=== PATIENT | female | born 1970 | race African-American/Black ===

== ENCOUNTER 2017-03-21 09:28 | Inpatient (IN) | payer MEDICAID ==
[~2017-03-21] VITALS: Ht 160 cm; Wt 100.0 kg
[2017-03-21] VITALS (11 sets, daily range): BP systolic 154–187; BP diastolic 78–97; PULSE 78–87; RESP 16–20; TEMP 97.6–98.7; O2SAT 99–100
[~2017-03-21 09:28] MED LIST: PENI250T59 PO; ULTR50TA PO
[2017-03-21] MEDS ORDERED: SODIUM CHLORIDE 0.9% FLUSH 10 ML FLUSH IVF PRN (10:15)
[2017-03-21] MEDS ORDERED: ASPIRIN 81 MG CHEW TAB PO ONE (10:15)
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
[2017-03-21 10:22] LABS: AUTOMATED NEUTROPHIL # 1.3 TH/MM3 (1.8-7.7); BASOPHIL # 0.1 TH/MM3 (0-0.2); BASOPHIL % 1.7 % (0.0-2.0); EOSINOPHIL # 0.1 TH/MM3 (0-0.4); EOSINOPHIL % 1.7 % (0.0-4.0); LYMPH % 51.5 % (9.0-44.0); MEAN CELL VOLUME 56.4 FL (80.0-100.0); MEAN CORPUSCULAR HEMOGLOBIN 15.6 PG (27.0-34.0); MONO % 11.9 % (0.0-8.0); NEUT % 33.2 % (16.0-70.0); PLATELET COUNT 424 TH/MM3 (150-450); RED BLOOD COUNT 3.45 MIL/MM3 (4.00-5.30); RED CELL DISTRIBUTION WIDTH 22.3 % (11.6-17.2); WHITE BLOOD COUNT 3.8 TH/MM3 (4.0-11.0)
[2017-03-21 10:25] LABS: HEMO FLAGS DIFF FINAL; MEAN CORPUSCULAR HGB CONC 27.6 % (32.0-36.0)
[2017-03-21 10:28] LABS: HEMATOCRIT 19.5 % (35.0-46.0)
--- NOTE | 2017-03-21 10:35 | RADRPT ---
EXAM DATE/TIME: 03/21/2017 10:16 [facility] COMPARISON: No previous studies available for comparison. INDICATIONS : Shortness of breath. MEDICAL HISTORY : None. SURGICAL HISTORY : None. ENCOUNTER: Initial ACUITY: 1 day PAIN SCORE: 0/10 LOCATION: Bilateral chest FINDINGS: A single view of the chest demonstrates the lungs to be symmetrically aerated without evidence of mas s, infiltrate or effusion. The cardiomediastinal contours are unremarkable. Osseous structures are intact. CONCLUSION: No acute disease. Be Denny MD on March 21, 2017 at 10:32 Board Certified Radiologist. This report was verified electronically.
[2017-03-21 10:45] LABS: ALT (GPT) 32 U/L (10-53); ANION GAP 8 MEQ/L (5-15); AST (GOT) 54 U/L (15-37); BLOOD UREA NITROGEN 10 MG/DL (7-18); CHLORIDE 110 MEQ/L (98-107); GLOMERULAR FILTRATION RATE 174 ML/MIN (>89); POTASSIUM 3.8 MEQ/L (3.5-5.1); SODIUM (NA) 142 MEQ/L (136-145)
[2017-03-21 10:50] LABS: ALKALINE PHOSPHATASE 53 U/L (45-117); TOTAL BILIRUBIN ADULT 0.3 MG/DL (0.2-1.0)
[2017-03-21 10:59] LABS: APTT (PATIENT) 24.9 SEC (24.3-30.1); PROTHROMBIN TIME - PATIENT 10.4 SEC (9.8-11.6)
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
[2017-03-21] MEDS ORDERED: SODIUM CHLOR 0.9% 250 ML INJ 250 ML IV ONE (11:45)
[2017-03-21] MEDS ORDERED: SENNOSIDES 8.6 MG TAB PO PRN (12:15)
[2017-03-21] MEDS ORDERED: FLUMAZENIL 0.5 MG/5 ML VIAL IV PUSH PRN (12:15)
[2017-03-21] MEDS ORDERED: SODIUM CHLORIDE 0.9% FLUSH 10 ML FLUSH IV FLUSH PRN (12:15)
[2017-03-21] MEDS ORDERED: NALOXONE HCL 0.4 MG/ML AMP IV PUSH PRN (12:15)
[2017-03-21] MEDS ORDERED: LORazepam 2 MG/ML VIAL IV PUSH PRN ×4 (12:15)
[2017-03-21] MEDS ORDERED: MAGNESIUM HYDROXIDE SUSP 30 ML CUP PO PRN (12:15)
[2017-03-21] MEDS ORDERED: BISACODYL 10 MG SUPP RECTAL PRN (12:15)
[2017-03-21] MEDS ORDERED: LORazepam 1 MG TAB PO PRN (12:15)
[2017-03-21] MEDS ORDERED: LACTULOSE SYRUP 20 GM/30 ML CUP PO PRN (12:15)
[2017-03-21] MEDS ORDERED: LORazepam 2 MG TAB PO PRN (12:15)
[2017-03-21] MEDS ORDERED: ONDANSETRON HCL 4 MG/2 ML VIAL IVP PRN (12:15)
--- NOTE | 2017-03-21 12:28 | HHI.HP ---
[facility] Service [facility] Primary Care Physician Sonny Roach MD Admission Diagnosis symptomatic anemia Diagnoses: Travel History International Travel<30 Days: No Contact w/Intl Traveler <30 Da: No Traveled to Known Affected Are: No History of Present Illness 46 year old female with a PMH of anemia requiring blood transfusions in the past presents with SOB and a "weird" feeling since 6am. The patient complains of feeling dizzy and lightheaded. She denies chest pain. She has received 3 blood transfusions in the past for severe anemia. She was seen by gastroenterology approximately 1 year ago where she had a colonoscopy done. She reports the colonoscopy was wnl without signs of bleeding. Patient has very heavy periods, lasting 8 days. She usually goes through 10 pads in a 24 hour period. She does not have a doctor that she see regularly, however she just got a new job with health insurance so she will be able to establish with a PCP. She denies hematemesis, melena and dark stools. H&H 5.4/19.5. Troponin mildly elevated to 0.06. EKG shows NSR without ST elevations or depressions. Review of Systems Denies fever or chills Denies blurry vision, otorrhea, rhinorrhea Denies sore throat and cough No chest pain, palpitations, positive shortness of breath No abdominal pain Denies constipation/diarrhea/nausea/vomiting Denies muscle pain/weakness No rashes Past Family Social History Past Medical History Anemia Past Surgical History c/s x 2 Reported Medications None Allergies: Coded Allergies: iodine (Unverified Allergy, Severe, HIVES, 03/21/17) potassium iodide (Unverified Allergy, Severe, HIVES, 03/21/17) povidone-iodine (Unverified Allergy, Severe, HIVES, 03/21/17) sodium iodide (Unverified Allergy, Severe, HIVES, 03/21/17) sodium iodide (Unverified Allergy, Severe, HIVES, 03/21/17) Family History No family history of CAD, DM Social History Never smoker. Drinks 2 mixed drinks daily. Denies illicit drugs. Physical Exam Vital Signs Vital Signs Date Time Temp Pulse Resp B/P (MAP) Pulse Ox O2 Delivery O2 Flow Rate FiO2 03/21/17 10:40 20 100 Room Air 03/21/17 09:41 98.4 87 18 187/86 (119) 100 Room Air 03/21/17 09:41 18 99 Room Air 03/21/17 09:39 98.4 82 18 187/86 (119) 99 Physical Exam GENERAL: AA female sitting up in bed SKIN: No rashes, ecchymoses or lesions. Cool and dry. HEAD: Atraumatic. Normocephalic. No temporal or scalp tenderness. EYES: Pupils equal round and reactive. Extraocular motions intact. No scleral icterus. No injection or drainage. Conjunctival pallor. ENT: Nose without bleeding, purulent drainage or septal hematoma. Throat without erythema, tonsillar hypertrophy or exudate. Uvula midline. Airway patent. NECK: Trachea midline. No JVD or lymphadenopathy. Supple, nontender, no meningeal signs. CARDIOVASCULAR: Regular rate and rhythm without murmurs, gallops, or rubs. RESPIRATORY: Clear to auscultation. Breath sounds equal bilaterally. No wheezes , rales, or rhonchi. GASTROINTESTINAL: Abdomen soft, non-tender, nondistended. No hepato-splenomegaly , or palpable masses. No guarding. MUSCULOSKELETAL: Extremities without clubbing, cyanosis, or edema. No joint tenderness, effusion, or edema noted. No calf tenderness. NEUROLOGICAL: Awake and alert. Cranial nerves II through XII intact. Motor and sensory grossly within normal limits. Normal speech. Laboratory Laboratory Tests Test 03/21/17 10:00 03/21/17 10:40 White Blood Count 3.8 Red Blood Count 3.45 Hemoglobin 5.4 Hematocrit 19.5 Mean Corpuscular Volume 56.4 Mean Corpuscular Hemoglobin 15.6 Mean Corpuscular Hemoglobin Concent 27.6 Red Cell Distribution Width 22.3 Platelet Count 424 Mean Platelet Volume 8.2 Neutrophils (%) (Auto) 33.2 Lymphocytes (%) (Auto) 51.5 Monocytes (%) (Auto) 11.9 Eosinophils (%) (Auto) 1.7 Basophils (%) (Auto) 1.7 Neutrophils # (Auto) 1.3 Lymphocytes # (Auto) 2.0 Monocytes # (Auto) 0.5 Eosinophils # (Auto) 0.1 Basophils # (Auto) 0.1 CBC Comment DIFF FINAL Differential Comment Blood Urea Nitrogen 10 Creatinine 0.47 Random Glucose 110 Total Protein 7.6 Albumin 3.5 Calcium Level 8.3 Alkaline Phosphatase 53 Aspartate Amino Transf (AST/SGOT) 54 Alanine Aminotransferase (ALT/SGPT) 32 Total Bilirubin 0.3 Sodium Level 142 Potassium Level 3.8 Chloride Level 110 Carbon Dioxide Level 24.0 Anion Gap 8 Estimat Glomerular Filtration Rate 174 Troponin I 0.06 B-Type Natriuretic Peptide 22 Prothrombin Time 10.4 Prothromb Time International Ratio 1.0 Activated Partial Thromboplast Time 24.9 Result Diagram: 03/21/17 1000 03/21/17 1000 Caprini VTE Risk Assessment Caprini VTE Risk Assessment: No/Low Risk (score <= 1) Caprini Risk Assessment Model Point Value = 1 Point Value = 2 Point Value = 3 Point Value = 5 Age 41-60 Minor surgery BMI > 25 kg/m2 Swollen legs Varicose veins or History of unexplained or recurrent spontaneous Oral contraceptives or hormone replacement Sepsis (< 1 month) Serious lung disease, including pneumonia (< 1 month) Abnormal pulmonary function Acute myocardial infarction Congestive heart failure (< 1 month) History of inflammatory bowel disease Medical patient at bed rest Age 61-74 Arthroscopic surgery Major open surgery (> 45 min) Laparoscopic surgery (> 45 min) Malignancy Confined to bed (> 72 hours) Immobilizing plaster cast Central venous access Age >= 75 History of VTE Family history of VTE Factor V Leiden Prothrombin [id number] Lupus anticoagulant Anticardiolipin antibodies Elevated serum homocysteine Heparin-induced thrombocytopenia Other congenital or acquired thrombophilia Stroke (< 1 month) Elective arthroplasty Hip, pelvis, or leg fracture Acute spinal cord injury (< 1 month) Prophylaxis Regimen Total Risk Factor Score Risk Level Prophylaxis Regimen 0-1 Low Early ambulation 2 Moderate Order ONE of the following: *Sequential Compression Device (SCD) *Heparin 5000 units SQ BID 3-4 Higher Order ONE of the following medications: *Heparin 5000 units SQ TID *Enoxaparin/Lovenox 40 mg SQ daily (WT < 150 kg, CrCl > 30 mL/min) *Enoxaparin/Lovenox 30 mg SQ daily (WT < 150 kg, CrCl > 10-29 mL/min) *Enoxaparin/Lovenox 30 mg SQ BID (WT < 150 kg, CrCl > 30 mL/min) AND/OR *Sequential Compression Device (SCD) 5 or more Highest Order ONE of the following medications: *Heparin 5000 units SQ TID (Preferred with Epidurals) *Enoxaparin/Lovenox 40 mg SQ daily (WT < 150 kg, CrCl > 30 mL/min) *Enoxaparin/Lovenox 30 mg SQ daily (WT < 150 kg, CrCl > 10-29 mL/min) *Enoxaparin/Lovenox 30 mg SQ BID (WT < 150 kg, CrCl > 30 mL/min) AND *Sequential Compression Device (SCD) Assessment and Plan Assessment and Plan 46 year old female presents with severe symptomatic anemia. 1. Severe anemia H/H 5.4/19.5, MCV 56.4 Transfuse 2 units PRBCs Hemoccult negative in ED, small amount of stool sampled Repeat Hemoccult when patient has BM, if positive will consult GI S/p colonoscopy for anemia one year ago - wnl without bleeding Suspect 2/2 heavy menses Start PO Iron supplementation Patient will need outpatient f/u 2. Elevated troponin Troponin 0.[address] elevations/depressions No chest pain Likely 2/2 severe anemia Trend troponin/EKG to r/o cardiac origin FEN Heart healthy diet Electrolytes: monitor and replete prn SCDs 3. EtOH abuse Daily intake CIWA protocol Thiamine/Folate/Multivitamins Case discussed with ER physician at length Physician Certification 2 Midnight Certification Type: Admission for Inpatient Services Order for Inpatient Services The services are ordered in accordance with Medicare regulations or non- Medicare payer requirements, as applicable. In the case of services not specified as inpatient-only, they are appropriately provided as inpatient services in accordance with the 2-midnight benchmark. Estimated LOS (days): 2 2 days is the estimated time the patient will need to remain in the hospital, assuming treatment plan goals are met and no additional complications. Post-Hospital Plan: Home Mariajose Begum MD Mar 21, 2017 12:28
[2017-03-21 13:05] LABS: TRANSFERRIN IRON PROFILE 445 MG/DL (200-360)
[2017-03-21 13:08] LABS: FERRITIN 5 NG/ML (8-252)
[2017-03-21] MEDS: ACETAMINOPHEN 325 MG TAB PO PRN (17:58)
[2017-03-21] MEDS: DOCUSATE SODIUM 50 MG/SENNA 8.6 MG TAB PO SCH (20:25)
[2017-03-21] MEDS: FERROUS SULFATE 325 MG (65 MG ELEMENTAL IRON) TAB PO SCH (20:26)
[2017-03-21] MEDS: SODIUM CHLORIDE 0.9% FLUSH 10 ML FLUSH IV FLUSH SCH (20:27)
--- NOTE | 2017-03-21 22:04 | EKG ---
Date Performed: 03/21/2017 Time Performed: 10:31:38 PTAGE: 46 years EKG: Sinus rhythm NORMAL ECG NO PREVIOUS TRACING DOCTOR: Thomas Lujan Interpretating Date/Time 03/21/2017 22:03:41
[2017-03-22] VITALS (8 sets, daily range): BP systolic 136–169; BP diastolic 79–98; PULSE 73–91; RESP 15–18; TEMP 97.7–98.9; O2SAT 98–100
[2017-03-22 02:05] LABS: AUTOMATED NEUTROPHIL # 2.2 TH/MM3 (1.8-7.7); BASOPHIL # 0.1 TH/MM3 (0-0.2); BASOPHIL % 1.2 % (0.0-2.0); EOSINOPHIL # 0.1 TH/MM3 (0-0.4); EOSINOPHIL % 2.7 % (0.0-4.0); HEMATOCRIT 22.9 % (35.0-46.0); LYMPH % 41.7 % (9.0-44.0); LYMPHOCYTE # 2.2 TH/MM3 (1.0-4.8); NEUT % 41.4 % (16.0-70.0); PLATELET COUNT 352 TH/MM3 (150-450); RED BLOOD COUNT 4.01 MIL/MM3 (4.00-5.30); RED CELL DISTRIBUTION WIDTH 21.2 % (11.6-17.2); WHITE BLOOD COUNT 5.3 TH/MM3 (4.0-11.0)
[2017-03-22 02:26] LABS: HEMO FLAGS DIFF FINAL; MEAN CORPUSCULAR HGB CONC 29.8 % (32.0-36.0)
[2017-03-22 02:28] LABS: BICARBONATE 26.6 MEQ/L (21.0-32.0); POTASSIUM 3.5 MEQ/L (3.5-5.1)
[2017-03-22] MEDS ORDERED: SODIUM CHLOR 0.9% 250 ML INJ 250 ML IV ONE (02:45)
[2017-03-22] MEDS: DOCUSATE SODIUM 50 MG/SENNA 8.6 MG TAB PO SCH ×2 (08:20→20:49)
[2017-03-22] MEDS: MULTIVITAMINS/MINERALS THERAPEUTIC TAB PO SCH (08:20)
[2017-03-22] MEDS: FERROUS SULFATE 325 MG (65 MG ELEMENTAL IRON) TAB PO SCH ×2 (08:20→20:49)
[2017-03-22] MEDS: FOLIC ACID 1 MG TAB PO SCH (08:20)
[2017-03-22] MEDS: THIAMINE HCL 100 MG TAB PO SCH (08:20)
[2017-03-22] MEDS: SODIUM CHLORIDE 0.9% FLUSH 10 ML FLUSH IV FLUSH SCH ×2 (08:21→20:51)
--- NOTE | 2017-03-22 12:06 | HHI.PR ---
Subjective Remarks in no acute distress. overall feeling better today. no chest pain, sob or dizziness. blood transfusion in process. Objective Vitals Vital Signs Date Time Temp Pulse Resp B/P (MAP) Pulse Ox O2 Delivery O2 Flow Rate FiO2 03/22/17 08:00 98.0 73 17 168/97 (120) 98 03/22/17 04:57 98.3 78 17 99 03/22/17 04:57 98.3 78 17 163/98 (119) 99 03/22/17 04:42 98.8 77 16 165/98 (120) 03/22/17 04:42 98.8 77 16 165/98 100 03/22/17 00:00 98.1 80 15 149/89 (109) 100 03/21/17 20:40 98.5 87 16 161/83 100 03/21/17 19:00 98.1 81 17 158/97 (117) 99 03/21/17 18:00 98.4 80 18 171/97 100 03/21/17 17:45 98.6 78 18 164/92 100 03/21/17 16:27 97.6 80 18 166/97 100 03/21/17 14:45 03/21/17 13:22 98.7 85 20 154/87 100 03/21/17 13:08 85 18 163/78 (106) 100 Room Air 03/21/17 13:06 98.6 86 18 163/78 100 I/O 03/21/17 03/21/17 03/21/17 03/22/17 03/22/17 03/22/17 07:00 15:00 23:00 07:00 15:00 23:00 Intake Total 50 ml 2007 ml Balance 50 ml 2007 ml Intake Oral 480 ml Packed Cells 1200 ml Blood Product IV Normal Saline Flush 50 ml 327 ml # Voids 3 # Bowel Movements 0 Result Diagram: 03/22/17 0156 03/22/17 0156 Imaging Last Impressions Chest X-Ray 03/21/17 1003 Signed Impressions: Service Date/Time: Tuesday, March 21, 2017 10:16 - CONCLUSION: No acute disease. Be Denny MD Lower Extremity Ultrasound 03/21/17 0000 Signed Impressions: Service Date/Time: Tuesday, March 21, 2017 11:13 - CONCLUSION: No DVT left leg. Be Denny MD Objective Remarks GENERAL: This is a well-nourished, well-developed patient, in no apparent distress. CARDIOVASCULAR: Regular rate and regular rhythm without murmurs, gallops, or rubs. RESPIRATORY: Clear to auscultation. Breath sounds equal bilaterally. No wheezes , rales, or rhonchi. GASTROINTESTINAL: Abdomen soft, non-tender, nondistended. Normal, active bowel sounds MUSCULOSKELETAL: Extremities without clubbing, cyanosis, or edema. NEURO: Alert & Oriented x4 to person, place, time, situation. Moves all ext x4 Medications and IVs Current Medications Aspirin (Aspirin Chew) 162 mg ONCE ONCE PO Last administered on 03/21/17 10: 40; Start 03/21/17 at 10:15; Stop 03/21/17 at 10:16; Status DC Sodium Chloride (NS Flush) 2 ml UNSCH PRN IVF FLUSH AFTER USING IV ACCESS; Start 03/21/17 at 10:15; Stop 03/21/17 at 12:32; Status DC Sodium Chloride 250 ml @ 15 mls/hr ONCE ONCE IV Last administered on 13:08; Start 03/21/17 at 11:45; Stop 03/22/17 at 04:24; Status DC Sodium Chloride (NS Flush) 2 ml UNSCH PRN IV FLUSH FLUSH AFTER USING IV ACCESS ; Start 03/21/17 at 12:15 Sodium Chloride (NS Flush) 2 ml BID IV FLUSH Last administered on 03/22/17 08: 21; Start 03/21/17 at 21:00 Acetaminophen (Tylenol) 650 mg Q4H PRN PO TEMP > 100.4 Last administered on 17:58; Start 03/21/17 at 12:15 Ondansetron HCl (Zofran Inj) 4 mg Q6H PRN IVP NAUSEA OR VOMITING; Start at 12:15 Naloxone HCl (Narcan Inj) 0.4 mg UNSCH PRN IV PUSH SEE LABEL COMMENTS; Start 03/21/17 at 12:15 Senna/Docusate Sodium (Lili-Colace) 1 tab BID PO Last administered on 08:20; Start 03/21/17 at 21:00 Magnesium Hydroxide (Milk Of Magnesia Liq) 30 ml Q12H PRN PO Mild constipation ; Start 03/21/17 at 12:15 Sennosides (Senokot) 17.2 mg Q12H PRN PO Moderate constipation; Start 03/21/17 at 12:15 Bisacodyl (Dulcolax Supp) 10 mg DAILY PRN RECTAL SEVERE CONSITIPATION; Start 03/21/17 at 12:15 Lactulose (Lactulose Liq) 30 ml DAILY PRN PO SEVERE CONSITIPATION; Start at 12:15 Flumazenil (Romazicon Inj) 0.2 mg Q1M PRN IV PUSH SEE LABEL COMMENTS; Start at 12:15 Lorazepam (Ativan) 1 mg Q4H PRN PO CIWA 8 - 10; Start 03/21/17 at 12:15 Lorazepam (Ativan Inj) 1 mg Q4H PRN IV PUSH CIWA 8 - 10; Start 03/21/17 at 12: 15 Lorazepam (Ativan) 2 mg Q2H PRN PO CIWA 11-14; Start 03/21/17 at 12:15 Lorazepam (Ativan Inj) 2 mg Q2H PRN IV PUSH CIWA 11-14; Start 03/21/17 at 12:15 Lorazepam (Ativan Inj) 2 mg Q1H PRN IV PUSH CIWA 15-20; Start 03/21/17 at 12:15 Lorazepam (Ativan Inj) 2 mg Q15M PRN IV PUSH CIWA > 20; Start 03/21/17 at 12:15 Ferrous Sulfate (Ferrous Sulfate) 325 mg BID PO Last administered on 03/22/17 08:20; Start 03/21/17 at 21:00 Folic Acid (Folate) 1 mg DAILY PO Last administered on 03/22/17 08:20; Start 03/22/17 at 09:00; Stop 03/27/17 at 08:59 Thiamine HCl (Vitamin B1) 100 mg DAILY PO Last administered on 03/22/17 08:20 ; Start 03/22/17 at 09:00 Multivitamins/ Minerals Therapeutic (Theragran M Tab) 1 tab DAILY PO Last administered on 03/22/17 08:20; Start 03/22/17 at 09:00; Stop 03/27/17 at 08:59 Sodium Chloride 250 ml @ 15 mls/hr ONCE ONCE IV ; Start 03/22/17 at 02:45; Stop 03/22/17 at 19:24 A/P Assessment and Plan A/P 1. Severe anemia- likely due to abnormal uterine bleeding. blood transfusion in process- Hemoccult negative in ED. Repeat Hemoccult when patient has BM, if positive will consult GI S/p colonoscopy for anemia one year ago - wnl without bleeding Suspect 2/2 heavy menses Started PO Iron supplementation Patient will need outpatient f/u 2. minimally Elevated troponin Trend stable with no chest pain. EKG NSR without ST elevations/depressions Likely 2/2 severe anemia 3. EtOH abuse Daily intake CIAL protocol Thiamine/Folate/Multivitamins Discharge Planning dc home tomorrow if stable. Sheryl Vasquez MD Mar 22, 2017 12:06
[2017-03-22] MEDS: ACETAMINOPHEN 325 MG TAB PO PRN (12:51)
[2017-03-22 17:44] LABS: HEMATOCRIT 27.5 % (35.0-46.0)
--- NOTE | 2017-03-22 19:51 | EKG ---
Date Performed: 03/21/2017 Time Performed: 21:52:27 PTAGE: 46 years EKG: Sinus rhythm Since previous tracing, no significant change noted NORMAL ECG PREVIOUS TRACING : 03/21/2017 10.31 DOCTOR: Clovis Zavala Interpretating Date/Time 03/22/2017 19:49:55
[2017-03-23] VITALS (7 sets, daily range): BP systolic 133–192; BP diastolic 80–95; PULSE 72–81; RESP 16–18; TEMP 97–98.7; O2SAT 98–100
[2017-03-23] MEDS: SODIUM CHLORIDE 0.9% FLUSH 10 ML FLUSH IV FLUSH SCH (09:00)
[2017-03-23] MEDS: FERROUS SULFATE 325 MG (65 MG ELEMENTAL IRON) TAB PO SCH (10:42)
[2017-03-23] MEDS: MULTIVITAMINS/MINERALS THERAPEUTIC TAB PO SCH (10:42)
[2017-03-23] MEDS: DOCUSATE SODIUM 50 MG/SENNA 8.6 MG TAB PO SCH (10:42)
[2017-03-23] MEDS: THIAMINE HCL 100 MG TAB PO SCH (10:42)
[2017-03-23] MEDS: FOLIC ACID 1 MG TAB PO SCH (10:42)
[2017-03-23] MEDS ORDERED: FERR325T20 PO (12:27)
--- NOTE | 2017-03-23 12:27 | HHI.PR ---
Subjective Remarks in no acute distress. no chest pain, sob or dizziness. BP and H/H trend noted. d/w the RN and no acute issues over night. Objective Vitals Vital Signs Date Time Temp Pulse Resp B/P (MAP) Pulse Ox O2 Delivery O2 Flow Rate FiO2 03/23/17 07:24 97.8 72 18 180/83 (115) 99 03/23/17 04:30 98.2 73 16 151/80 (103) 100 03/23/17 00:20 98.2 76 16 166/92 (116) 100 03/22/17 20:40 97.7 82 16 169/97 (121) 100 03/22/17 20:26 80 03/22/17 16:00 98.9 91 18 136/82 (100) 100 03/22/17 14:01 16 I/O 03/22/17 03/22/17 03/22/17 03/23/17 03/23/17 03/23/17 07:00 15:00 23:00 07:00 15:00 23:00 Intake Total 1240 ml 480 ml 360 ml Balance 1240 ml 480 ml 360 ml Intake Oral 840 ml 480 ml 360 ml Packed Cells 400 ml # Voids 4 2 2 # Bowel Movements 1 0 0 Result Diagram: 03/22/17 1653 03/22/17 0156 Imaging Last Impressions Chest X-Ray 03/21/17 1003 Signed Impressions: Service Date/Time: Tuesday, March 21, 2017 10:16 - CONCLUSION: No acute disease. Be Denny MD Lower Extremity Ultrasound 03/21/17 0000 Signed Impressions: Service Date/Time: Tuesday, March 21, 2017 11:13 - CONCLUSION: No DVT left leg. Be Denny MD Objective Remarks GENERAL: This is a well-nourished, well-developed patient, in no apparent distress. CARDIOVASCULAR: Regular rate and regular rhythm without murmurs, gallops, or rubs. RESPIRATORY: Clear to auscultation. Breath sounds equal bilaterally. No wheezes , rales, or rhonchi. GASTROINTESTINAL: Abdomen soft, non-tender, nondistended. Normal, active bowel sounds MUSCULOSKELETAL: Extremities without clubbing, cyanosis, or edema. NEURO: Alert & Oriented x4 to person, place, time, situation. Moves all ext x4 Medications and IVs Current Medications Aspirin (Aspirin Chew) 162 mg ONCE ONCE PO Last administered on 03/21/17 10: 40; Start 03/21/17 at 10:15; Stop 03/21/17 at 10:16; Status DC Sodium Chloride (NS Flush) 2 ml UNSCH PRN IVF FLUSH AFTER USING IV ACCESS; Start 03/21/17 at 10:15; Stop 03/21/17 at 12:32; Status DC Sodium Chloride 250 ml @ 15 mls/hr ONCE ONCE IV Last administered on 13:08; Start 03/21/17 at 11:45; Stop 03/22/17 at 04:24; Status DC Sodium Chloride (NS Flush) 2 ml UNSCH PRN IV FLUSH FLUSH AFTER USING IV ACCESS ; Start 03/21/17 at 12:15 Sodium Chloride (NS Flush) 2 ml BID IV FLUSH Last administered on 03/22/17 20: 51; Start 03/21/17 at 21:00 Acetaminophen (Tylenol) 650 mg Q4H PRN PO TEMP > 100.4 Last administered on 12:51; Start 03/21/17 at 12:15 Ondansetron HCl (Zofran Inj) 4 mg Q6H PRN IVP NAUSEA OR VOMITING; Start at 12:15 Naloxone HCl (Narcan Inj) 0.4 mg UNSCH PRN IV PUSH SEE LABEL COMMENTS; Start 03/21/17 at 12:15 Senna/Docusate Sodium (Lili-Colace) 1 tab BID PO Last administered on 10:42; Start 03/21/17 at 21:00 Magnesium Hydroxide (Milk Of Magnesia Liq) 30 ml Q12H PRN PO Mild constipation ; Start 03/21/17 at 12:15 Sennosides (Senokot) 17.2 mg Q12H PRN PO Moderate constipation; Start 03/21/17 at 12:15 Bisacodyl (Dulcolax Supp) 10 mg DAILY PRN RECTAL SEVERE CONSITIPATION; Start 03/21/17 at 12:15 Lactulose (Lactulose Liq) 30 ml DAILY PRN PO SEVERE CONSITIPATION; Start at 12:15 Flumazenil (Romazicon Inj) 0.2 mg Q1M PRN IV PUSH SEE LABEL COMMENTS; Start at 12:15 Lorazepam (Ativan) 1 mg Q4H PRN PO CIWA 8 - 10; Start 03/21/17 at 12:15 Lorazepam (Ativan Inj) 1 mg Q4H PRN IV PUSH CIWA 8 - 10; Start 03/21/17 at 12: 15 Lorazepam (Ativan) 2 mg Q2H PRN PO CIWA 11-14; Start 03/21/17 at 12:15 Lorazepam (Ativan Inj) 2 mg Q2H PRN IV PUSH CIWA 11-14; Start 03/21/17 at 12:15 Lorazepam (Ativan Inj) 2 mg Q1H PRN IV PUSH CIWA 15-20; Start 03/21/17 at 12:15 Lorazepam (Ativan Inj) 2 mg Q15M PRN IV PUSH CIWA > 20; Start 03/21/17 at 12:15 Ferrous Sulfate (Ferrous Sulfate) 325 mg BID PO Last administered on 03/23/17 10:42; Start 03/21/17 at 21:00 Folic Acid (Folate) 1 mg DAILY PO Last administered on 03/23/17 10:42; Start 03/22/17 at 09:00; Stop 03/27/17 at 08:59 Thiamine HCl (Vitamin B1) 100 mg DAILY PO Last administered on 03/23/17 10:42 ; Start 03/22/17 at 09:00 Multivitamins/ Minerals Therapeutic (Theragran M Tab) 1 tab DAILY PO Last administered on 03/23/17 10:42; Start 03/22/17 at 09:00; Stop 03/27/17 at 08:59 Sodium Chloride 250 ml @ 15 mls/hr ONCE ONCE IV ; Start 03/22/17 at 02:45; Stop 03/22/17 at 19:24; Status DC A/P Assessment and Plan A/P 1. Severe anemia- likely due to abnormal uterine bleeding. s/p blood transfusion with improved H/H. Hemoccult negative. S/p colonoscopy for anemia one year ago - wnl without bleeding Suspect 2/2 heavy menses Started PO Iron supplementation Patient will need outpatient f/u 2. minimally Elevated troponin Trend stable with no chest pain. EKG NSR without ST elevations/depressions Likely 2/2 severe anemia 3. EtOH abuse Daily intake CIWA protocol Thiamine/Folate/Multivitamins 4. elevated BP's- no history of hypertension- will recheck the BP this afternoon. Discharge Planning likely dc home later today- pending BP and H/H. d/w the patient and RN. see med list. f/u; pcp and [facility]. Sheryl Vasquez MD Mar 23, 2017 12:26
[2017-03-23 13:52] LABS: HEMATOCRIT 28.4 % (35.0-46.0)
[2017-03-23] MEDS ORDERED: NIFEdipine 30 MG SUSTAINED RELEASE TAB PO ONE (14:30)
[2017-03-23] MEDS ORDERED: AMLO5 PO (17:26)
--- NOTE | 2017-03-23 17:29 | HHI.DS ---
Discharge Summary Admission Date Mar 21, 2017 at 11:57 Discharge Date: Mar 23, 2017 Admitting Diagnosis symptomatic anemia Brief History - From Admission 46 year old female with a PMH of anemia requiring blood transfusions in the past presents with SOB and a "weird" feeling since 6am. The patient complains of feeling dizzy and lightheaded. She denies chest pain. She has received 3 blood transfusions in the past for severe anemia. She was seen by gastroenterology approximately 1 year ago where she had a colonoscopy done. She reports the colonoscopy was wnl without signs of bleeding. Patient has very heavy periods, lasting 8 days. She usually goes through 10 pads in a 24 hour period. She does not have a doctor that she see regularly, however she just got a new job with health insurance so she will be able to establish with a PCP. She denies hematemesis, melena and dark stools. H&H 5.4/19.5. Troponin mildly elevated to 0.06. EKG shows NSR without ST elevations or depressions. CBC/BMP: 03/23/17 1240 03/22/17 0156 Significant Findings Laboratory Tests Test 03/21/17 10:00 03/21/17 10:40 03/21/17 20:10 03/22/17 01:56 White Blood Count 3.8 TH/MM3 (4.0-11.0) Red Blood Count 3.45 MIL/MM3 (4.00-5.30) Hemoglobin 5.4 GM/DL (11.6-15.3) 6.8 GM/DL (11.6-15.3) Hematocrit 19.5 % (35.0-46.0) 22.9 % (35.0-46.0) Mean Corpuscular Volume 56.4 FL (80.0-100.0) 57.0 FL (80.0-100.0) Mean Corpuscular Hemoglobin 15.6 PG (27.0-34.0) 17.0 PG (27.0-34.0) Mean Corpuscular Hemoglobin Concent 27.6 % (32.0-36.0) 29.8 % (32.0-36.0) Red Cell Distribution Width 22.3 % (11.6-17.2) 21.2 % (11.6-17.2) Lymphocytes (%) (Auto) 51.5 % (9.0-44.0) Monocytes (%) (Auto) 11.9 % (0.0-8.0) 13.0 % (0.0-8.0) Neutrophils # (Auto) 1.3 TH/MM3 (1.8-7.7) Creatinine 0.47 MG/DL (0.50-1.00) Random Glucose 110 MG/DL (74-106) Calcium Level 8.3 MG/DL (8.5-10.1) 8.3 MG/DL (8.5-10.1) Aspartate Amino Transf (AST/SGOT) 54 U/L (15-37) Chloride Level 110 MEQ/L (98-107) Iron Level 11 MCG/DL (50-170) Total Iron Binding Capacity 623 MCG/DL (250-450) Percent Iron Saturation 1.8 % (20-50) Ferritin 5 NG/ML (8-252) Troponin I 0.06 NG/ML (0.02-0.05) Test 03/22/17 16:53 03/23/17 12:40 Hemoglobin 8.1 GM/DL (11.6-15.3) 8.4 GM/DL (11.6-15.3) Hematocrit 27.5 % (35.0-46.0) 28.4 % (35.0-46.0) Imaging Last Impressions Chest X-Ray 03/21/17 1003 Signed Impressions: Service Date/Time: Tuesday, March 21, 2017 10:16 - CONCLUSION: No acute disease. Be Denny MD Lower Extremity Ultrasound 03/21/17 0000 Signed Impressions: Service Date/Time: Tuesday, March 21, 2017 11:13 - CONCLUSION: No DVT left leg. Be Denny MD PE at Discharge GENERAL: This is a well-nourished, well-developed patient, in no apparent distress. CARDIOVASCULAR: Regular rate and regular rhythm without murmurs, gallops, or rubs. RESPIRATORY: Clear to auscultation. Breath sounds equal bilaterally. No wheezes , rales, or rhonchi. GASTROINTESTINAL: Abdomen soft, non-tender, nondistended. Normal, active bowel sounds MUSCULOSKELETAL: Extremities without clubbing, cyanosis, or edema. NEURO: Alert & Oriented x4 to person, place, time, situation. Moves all ext x4 Hospital Course patient was admitted with anemia. she received PRBC transfusion with improved H/ H. the anemia is likely due to abnormal uterine bleeding since she admits to have heavy menstrual bleeding. she was advised to have a follow-up with [facility] as outpatient. she was noted to have multiple elevated blood pressure readings. she will be started on Norvasc with close f/u with her PCP as outpatient. Pt Condition on Discharge: Fair Discharge Disposition: Discharge Home Discharge Time: <= 30 minutes Discharge Instructions DIET: Follow Instructions for: Heart Healthy Diet Activities you can perform: Regular-No Restrictions Follow up Referrals: Appointment for Follow Up [facility] PCP Follow-up PCP Follow-up @ [facility] New Medications: Amlodipine (Norvasc) 5 Mg Tab 5 MG PO DAILY for Blood Pressure Management, #30 TAB 0 Refills Ferrous Sulfate (Ferosul) 325 Mg (65 Mg Iron) Tablet 325 MG PO BID for anemia for 30 Days, TAB 0 Refills Sheryl Vasquez MD Mar 23, 2017 17:29
== END 2017-03-23 20:16 | disposition home or self-care (01) | DRG 812 ==
LOC: NEPC 09:28 → NEDA 11:57 → N06A 14:05
PROVIDERS: ADMIT Internal Medicine; ATTEND Internal Medicine
PROC: 30233N1 Transfusion of Nonautologous Red Blood Cells into Peripheral Vein, Percutaneous Approach (ICD-10-PCS; principal; 2017-03-21)
DX: D50.0 Iron deficiency anemia secondary to blood loss (chronic) (principal); N92.0 Excessive and frequent menstruation with regular cycle; F10.10 Alcohol abuse, uncomplicated; R03.0 Elevated blood-pressure reading, without diagnosis of hypertension
CPT/HCPCS: 36430; 71010; 76937; 80048; 80053; 82272; 82550; 82728; 83540; 83550; 83880; 84484; 84703; 85014; 85018; 85025; 85610; 85730; 86850; 86900; 86901; 86920; 86922; 93005; 93971; 99285; J7050; P9016

== ENCOUNTER 2017-05-18 22:54 | Emergency (ER) | payer MEDICAID, OTHER ==
[~2017-05-18] VITALS: Ht 160 cm; Wt 106.5 kg
[~2017-05-18 22:54] MED LIST changes: +AMLO5 PO; +FERR325T20 PO; -PENI250T59 PO; -ULTR50TA PO
[2017-05-18 22:59] VITALS: BP 133/79; PULSE 96; RESP 16; TEMP 98.3; O2SAT 96
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
[2017-05-18] MEDS ORDERED: CEPH-460 PO (23:48)
[2017-05-18] MEDS ORDERED: IBUP-232 PO (23:48)
== END 2017-05-19 00:16 | disposition home or self-care (01) ==
LOC: NEPD 22:54
DX: S51.812A Laceration without foreign body of left forearm, initial encounter (principal); W25.XXXA Contact with sharp glass, initial encounter; Y93.89 Activity, other specified
CPT/HCPCS: 12002

== ENCOUNTER 2017-07-21 10:16 | Emergency (ER) | payer OTHER ==
[~2017-07-21] VITALS: Ht 160 cm; Wt 85.0 kg
[~2017-07-21 10:16] MED LIST changes: +CEPH-460 PO; +IBUP-232 PO
[2017-07-21 10:23] VITALS: BP 152/80; PULSE 88; RESP 17; TEMP 98.5; O2SAT 99
[2017-07-21] MEDS ORDERED: MOME17I EACH NARE (10:51)
[2017-07-21] MEDS ORDERED: BENZ100 PO (10:51)
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
[2017-07-21] MEDS ORDERED: IBUPROFEN 800 MG TAB PO ONE (11:00)
== END 2017-07-21 11:45 | disposition home or self-care (01) ==
LOC: NEPK 10:16
DX: B34.9 Viral infection, unspecified (principal)
CPT/HCPCS: 87081; 87804; 87880; 99283

== ENCOUNTER 2017-09-12 13:36 | Emergency (ER) | payer OTHER ==
[~2017-09-12] VITALS: Ht 162.6 cm; Wt 100.0 kg
[2017-09-12] VITALS (7 sets, daily range): BP systolic 149–169; BP diastolic 65–94; PULSE 77–96; RESP 18–20; TEMP 98.5–99.5; O2SAT 97–100
[~2017-09-12 13:36] MED LIST changes: -AMLO5 PO; +BENZ100 PO; -CEPH-460 PO; -FERR325T20 PO; -IBUP-232 PO; +MOME17I EACH NARE
[2017-09-12] MEDS ORDERED: SODIUM CHLOR 0.9% 1000 ML INJ 1,000 ML IV ONE (14:00)
[2017-09-12] MEDS ORDERED: ONDANSETRON ODT 4 MG TAB PO ONE (14:00)
[2017-09-12 15:05] LABS: AUTOMATED NEUTROPHIL # 3.6 TH/MM3 (1.8-7.7); BASOPHIL # 0.1 TH/MM3 (0-0.2); BASOPHIL % 1.3 % (0.0-2.0); EOSINOPHIL # 0.1 TH/MM3 (0-0.4); HEMATOCRIT 23.1 % (35.0-46.0); HEMOGLOBIN 7.1 GM/DL (11.6-15.3); LYMPH % 23.2 % (9.0-44.0); LYMPHOCYTE # 1.3 TH/MM3 (1.0-4.8); MEAN CELL VOLUME 56.7 FL (80.0-100.0); MEAN CORPUSCULAR HEMOGLOBIN 17.3 PG (27.0-34.0); MEAN CORPUSCULAR HGB CONC 30.5 % (32.0-36.0); MEAN PLATELET VOLUME 8.4 FL (7.0-11.0); MONO % 9.4 % (0.0-8.0); MONOCYTE # 0.5 TH/MM3 (0-0.9); NEUT % 65.1 % (16.0-70.0); PLATELET COUNT 328 TH/MM3 (150-450); RED BLOOD COUNT 4.08 MIL/MM3 (4.00-5.30); RED CELL DISTRIBUTION WIDTH 21.4 % (11.6-17.2); WHITE BLOOD COUNT 5.5 TH/MM3 (4.0-11.0)
[2017-09-12 15:07] LABS: ALT (GPT) 41 U/L (10-53); AST (GOT) 112 U/L (15-37); BICARBONATE 23.9 MEQ/L (21.0-32.0); BLOOD UREA NITROGEN 6 MG/DL (7-18); CALCIUM 8.7 MG/DL (8.5-10.1); CHLORIDE 103 MEQ/L (98-107); CREATININE 0.59 MG/DL (0.50-1.00); GLOMERULAR FILTRATION RATE 134 ML/MIN (>89); GLUCOSE,RANDOM 105 MG/DL (74-106); SODIUM (NA) 139 MEQ/L (136-145)
[2017-09-12 15:08] LABS: ALKALINE PHOSPHATASE 51 U/L (45-117); TOTAL BILIRUBIN ADULT 0.7 MG/DL (0.2-1.0); TOTAL PROTEIN 8.4 GM/DL (6.4-8.2)
[2017-09-12 15:16] LABS: INTERNATIONAL NORMALIZED RATIO 1.1 RATIO; PROTHROMBIN TIME - PATIENT 10.7 SEC (9.8-11.6)
[2017-09-12 15:52] LABS: OVALOCYTES 1+ (NORMAL)
[2017-09-12] MEDS ORDERED: SODIUM CHLOR 0.9% 250 ML INJ 250 ML IV ONE (16:00)
[2017-09-12 16:02] LABS: KERATOCYTES OCC (NORMAL); TEARDROP RBCS 1+ (NORMAL)
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
== END 2017-09-12 19:54 | disposition home or self-care (01) ==
LOC: NEPC 13:36
DX: D64.9 Anemia, unspecified (principal)
CPT/HCPCS: 36430; 80053; 84703; 85025; 85610; 85730; 86850; 86900; 86901; 86920; 86922; 96360; 99284; J7030; P9016